=== PATIENT | female | born 1970 | race Caucasian/White ===

== ENCOUNTER 2016-09-21 21:59 | Emergency (ER) | payer MEDICARE, OTHER ==
--- NOTE | ~2016-09-21 | CT71 ---
[facility] A Service of [facility] RADIOLOGY TEXT RESULTS PATIENT: TIFFANY KHALIL LOCATION: [facility] : 68 UNIT #: [id number] AGE: [address]: Justin Dexter MD SEX: F ORDER DR: [id number] [facility] [address] [place], [place] [address] [id number] MR#: [id number] Acc #: [id number] NAME: TIFFANY KHALIL. : 1970 SEX: F STUDY DATE/TIME: 09/21/2016 23:59 UNIT: [facility] ROOM: STUDY DESCRIPTION: CT Head Wo Contrast Attending Physician: Zay Dexter M.D. Ordering Physician: Shailesh Palmer M.D. MEDICAL IMAGING REPORT This report is preliminary unless electronic signature is present EXAM Head CT, 09/21. INDICATIONS Headache with sinus pain for 4 months. Dizziness over the last week. FINDINGS Axial images were obtained from the base to the vertex without contrast. No comparison. This CT exam was performed with one or more of the following radiation dose reduction techniques: automatic exposure control, adjustment of mA and/or kV according to patient size, and iterative reconstruction. Ventricular size and configuration are normal. There is no evidence of acute infarct or hemorrhage. There are no masses. Visualized paranasal sinuses are clear. Mastoid air cells appear clear as well. No skull fracture. IMPRESSION Normal head CT. Visualized sinuses and mastoid air cells are clear. Dictated by... Donald Sullivan Jr., M.D. THIS IS AN ELECTRONICALLY VERIFIED REPORT Donald Sullivan Jr., M.D. at 09/22/2016 11:25 AM WADE/edna TD: 09/22/2016 07:19 JOB #: [id number] [facility] A Service of [facility] RADIOLOGY TEXT RESULTS PATIENT: TIFFANY KHALIL LOCATION: [facility] : 68 UNIT #: [id number] AGE: [address]: Justin Dexter MD SEX: F ORDER DR: MEDICAL IMAGING REPORT Page 1 of 1 COPY
[~2016-09-21 21:59] MED LIST: CILOXAN5 ML OP; LORTAB 5/500 TA1 TA2 PO; NO MEDICATIONS
== END 2016-09-22 01:40 | disposition home or self-care (01) ==
LOC: CED 21:59
DX: R51 Headache (principal); F41.9 Anxiety disorder, unspecified; Z98.51 Tubal ligation status; Z88.5 Allergy status to narcotic agent; Z88.8 Allergy status to other drugs, medicaments and biological substances
CPT/HCPCS: 70450; 99284